=== PATIENT | female | born 1995 | race Caucasian/White ===

== ENCOUNTER 2016-10-20 15:37 | Emergency (ER) | payer OTHER ==
[2016-10-20] MEDS ORDERED: DEXAMETHASONE 10 MG/ML VIAL PO STA (16:31)
[2016-10-20] MEDS ORDERED: HYDROcod/ACETAM 5/325 MG TABLET PO STA (16:31)
[2016-10-20] MEDS ORDERED: ONDANSETRON ODT 4 MG TABLET TL STA (16:31)
[2016-10-20] MEDS ORDERED: DEXAMETHASONE 10 MG/ML VIAL ONE (16:34)
[2016-10-20] MEDS ORDERED: HYDROcod/ACETAM 5/325 MG TABLET ONE (16:34)
[2016-10-20] MEDS ORDERED: ONDANSETRON ODT 4 MG TABLET ONE (16:34)
== END 2016-10-20 16:56 | disposition home or self-care (01) ==
DX: J06.9 Acute upper respiratory infection, unspecified (principal)
CPT/HCPCS: 99283; A9270; Q0162